=== PATIENT | male | born 1985 | race Caucasian/White ===

== ENCOUNTER → 2024-12-23 | Outpatient (CLI) | payer OTHER, SELFPAY ==
[2024-12-25 16:09] LABS: V-Zoster IgG (Immunity) Reactive (Non Reactive); V-Zoster Virus Acute IgM < 0.91 index (0.00-0.90)
== END | disposition home or self-care (01) ==
PROVIDERS: Referring Provider Dermatology Pediatric Dermatology; Visit Provider Dermatology Pediatric Dermatology
DX: L08.9 Local infection of the skin and subcutaneous tissue, unspecified (principal)
CPT/HCPCS: 86787